=== PATIENT | male | born 1970 | race African-American/Black ===

== ENCOUNTER 2019-02-15 09:32 | Emergency (ER) | payer OTHER ==
[~2019-02-15] VITALS: Ht 170.2 cm; Wt 95.3 kg
[2019-02-15] MEDS ORDERED: KEFLEX500 MG PO (09:56)
--- OUTSIDE RECORDS SUMMARY | 2019-02-17 13:55 | XMS REPORT ---
Author Author [facility] Address Unknown Phone Unavailable Care Team Providers Care Pheresis Nurse Name Role Phone MEY JOHNSON Unavailable Unavailable Problems This patient has no known problems. Allergies, Adverse Reactions, Alerts This patient has no known allergies or adverse reactions. Medications This patient has no known medications. Results Test Description Test Time Test Comments Text Results Atomic Results Result Comments D-DIMER 2017-05-19 23:48:00 D-DIMER QUANTITATIVE (BEAKER) (test qtgi=920) < MG/L FEU <0.50 REGARDING D-DIMER RESULTS: Results of this D-Dimer test should always be interpr eted in conjunction with the patient's medical history, clinical presentation an d other findings. DVT clinical diagnosis should not be based on the results of I NNOVANCE D-Dimer alone.RAD, ANKLE, MIN 3 VIEWS, [id number] 23:18:00Reason for exam:->INSECT BITEReason for exam:->FOOT SWELLINGShould this be performed at the bedside?->NoFINAL REPORT EXAM: Left ankle 3 views CLINICAL HISTORY: Insect bite, foot swelling FINDINGS: There is no evidence of acute fracture or malalignment. The articular joints are within normal limits. Diffuse soft tissue prominence is noted throughout the ankle which may represent edema versus postinflammatory or posttraumatic changes. Recommend clinical correlation. IMPRESSION: 1. No radiographic evidence of acute osseous injury. 2. Soft tissue swelling as described. Signed: Denton Davis MDReport Verified Date/Time: 05/19/2017 23:18:56 Reading Location: [facility] [id number] Consult Reading Room
== END 2019-02-15 10:04 | disposition home or self-care (01) ==
LOC: FSED 09:32
DX: S61.213A Laceration without foreign body of left middle finger without damage to nail, initial encounter (principal); W45.8XXA Other foreign body or object entering through skin, initial encounter; Y99.0 Civilian activity done for income or pay; I10 Essential (primary) hypertension; G47.00 Insomnia, unspecified
CPT/HCPCS: 99284